=== PATIENT | female | born 1970 | race Caucasian/White ===

== ENCOUNTER → 2018-01-19 09:55 | Outpatient (CLI) | payer OTHER, SELFPAY ==
--- NOTE | 2018-01-19 09:57 | DI.MG.S_ITS ---
UNILATERAL RIGHT DIGITAL DIAGNOSTIC MAMMOGRAM 3D/2D WITH ADDITIONAL VIEWS: 01/19/2018 CLINICAL: Additional evaluation requested from prior study. Comparison is made to exams dated: 01/02/2018 mammogram - [facility], 04/21/2016 mammogram, and 10/29/2014 mammogram - [facility]. The tissue of the right breast is heterogeneously dense. This may lower the sensitivity of mammography. The 0.5 cm oval equal density asymmetry with an obscured margin in the right breast anterior depth superior region seen on the mediolateral oblique view is not seen in additional views. No other significant masses or calcifications are seen in the breast. IMPRESSION: BENIGN There is no mammographic evidence of malignancy. A 1 year screening mammogram is recommended. This exam was interpreted at Station ID: [id number]. NOTE: For mammograms, a report in lay terms will be sent to the patient. Approximately 15% of breast malignancies will not be visualized mammographically. In the management of a palpable breast mass, a negative mammogram must not discourage biopsy of a clinically suspicious lesion. Electronically Signed By: Allie Cheng M.D. lk/:01/19/2018 10:29:30 letter sent: Normal Exam ACR BI-RADS Category 2: Benign Finding(s) 3342F
== END ==
PROVIDERS: Visit Provider Physician Assistant
DX: R92.8 Other abnormal and inconclusive findings on diagnostic imaging of breast (principal)
CPT/HCPCS: 77065; G0279